=== PATIENT | male | born 1970 ===

== ENCOUNTER 2024-05-08 10:31 | Inpatient (IN) | payer MEDICAID, OTHER ==
[~2024-05-08] VITALS: Ht 175.3 cm; Wt 55.9 kg
[2024-05-08] MEDS ORDERED: DEXTROSE 10% 250 ML Bag IV ONE (10:45)
--- NOTE | 2024-05-08 11:04 | ED.PDOC ---
History of present illness HPI Comments 53y M who presents to the ED via EMS for chief complaint of altered mental status. Per EMS, pt is student at local college and pt was found passed out in toilet by another student in bathroom and EMS was called. Upon EMS arrival, pt was moved to chair and was noted to be somnolent and EMS states pt was confused and asking where he was and noted to be ax0x2. Pt had Accu check and it was noted to be in the 60's on arrival to the ED. EMS states pt told EMS he felt cold and weak." and pt was brought to the ED for further evaluation. Pt in the ED, is ax0x2 and has has no note bruising, swelling or edema noted to head or scalp region. Pt also states he has chronic right ankle wound for which he states he is chronically on antibiotics. Pt otherwise in the ED, denies chest pain, shortness of breath, headache, dizziness, nausea, vomiting, fever, cough, or chills. Pt in the ED, has noted temp of 97.1F, rr 16, 02 sat of 100% on room air, and BP of 144/89 with noted accu check of 67. Pt otherwise has unknown medical history. Pt denies any other symptoms at this time. Chief Complaint: Hypoglycemia Time Seen by MD: 11:01 History of present illness: Cost Recorder Notes Allergies: Coded Allergies: NO KNOWN ALLERGIES (Unverified , 05/08/24) Information Source: Emergency Med Personnel Mode of Arrival: EMS Brought in by: EMS Past Medical History Past Medical History (Other): Chronic right ankle wound Surgical History: Unknown Family History Family History: Unknown Social History Smoker: Unknown Alcohol: Unknown Drugs: Unknown Lives In: Home Constitutional: reports: fatigue, malaise, weakness; denies: chills, diaphoresis, fever, sweats, others EENTM: denies: blurred vision, double vision, ear bleeding, ear discharge, ear drainage, ear pain, ear ringing, eye pain, eye redness, hearing loss, mouth pain, mouth swelling, nasal discharge, nose bleeding, nose congestion, nose pain, photophobia, tearing, throat pain, throat swelling, voice changes, others Respiratory: denies: cough, hemoptysis, orthopnea, SOB at rest, shortness of breath, SOB with excertion, stridor, wheezing, others Cardiovascular: denies: chest pain, dizzy spells, diaphoresis, Dyspnea on exertion, edema, irregular heart beat, left arm pain, lightheadedness, palpitations, PND, syncope, others Gastrointestinal: denies: abdomen distended, abdominal pain, blood streaked bowels, constipated, diarrhea, dysphagia, difficulty swallowing, hematemesis, melena, nausea, poor appetite, poor fluid intake, rectal bleeding, rectal pain, vomiting, others Genitourinary: denies: burning, dysuria, flank pain, frequency, hematuria, incontinence, penile discharge, penile sore, pain, testicle pain, testicle swelling, urgency, others Neurological: denies: dizziness, fainting, headache, left sided numbness, left sided weakness, numbness, paresthesia, pre-existing deficit, right sided numbness, right sided weakness, seizure, speech problems, tingling, tremors, weakness, others Musculoskeletal: denies: back pain, gout, joint pain, joint swelling, muscle pain, muscle stiffness, neck pain, others Integumetry: reports: wounds (R leg); denies: bruises, change in color, change in hair/nails, dryness, laceration, lesions, lumps, rash, others Allergic/Immunocompromised: denies: Difficulty Healing, Frequent Infections, Hives, Itching, others Hematologic/Lymphatic: denies: anemia, blood clots, easy bleeding, easy bruising, swollen glands, others Endocrine: denies: excessive hunger, excessive sweating, excessive thirst, excessive urination, flushing, intolerance to cold, intolerance to heat, unexplained weight gain, unexplained weight loss, others Psychiatric: denies: anxiety, bipolar disorder, depression, hopeless, panic disorder, schizophrenia, sleepless, suicidal, others All Other Systems: Reviewed and Negative Physical Exam General Appearance: No Apparent Distress HEENT: PERRL/EOMI Neck: Full Range of Motion, Normal Inspection Respiratory: Chest Non-Tender, Lungs Clear, No Respiratory Distress, Normal Breath Sounds Cardiovascular: No Edema, No JVD, Regular Rate/Rhythm Breast Exam: Deferred Gastrointestinal: Non Tender, Soft Genitalia: Deferred Pelvic: Deferred Rectal: Deferred Extremities: Normal range of motion, No pedal edema, Other (Right ankle chronic appearing wound on the medial aspect) Neurologic: Alert (Oriented x2), Normal Affect, Normal Mood, Other (No gross focal deficit) Cerebellar Function: NOT DONE Reflexes: NOT DONE Skin: Dry, Normal Color, Warm, Other (Right ankle approximate 5 x 4 cm chronic appearing stage 4 wound/ulceration with malodorous clear discharge. No surrounding erythema or fluctuance.) Lymphatic: NOT DONE Was a procedure done? Was a procedure done?: No EKG EKG : Comments Sinus rhythm, rate 55, normal intervals, normal axis, normal QRS, no ST/T changes. Differential Diagnosis (DM) Differential Diagnosis: Dehydration, Electrolyte Abnormality, Encephalopathy, Hypoglycemia, UTI, Other (Alcohol/drug intoxication, CVA, TIA, arrhythmia, AL, among others) Other Differential Diagnosis cellulitis, osteomyelitis, sepsis, X-Ray, Labs, Meds, VS Vital Signs Date Time Temp Pulse Resp B/P (MAP) Pulse Ox O2 Delivery O2 Flow Rate FiO2 05/08/24 11:31 97.1 58 16 144/89 (107) 100 05/08/24 10:40 55 Lab Test 05/08/24 11:26 05/08/24 11:24 Range/Units White Blood Count 8.4 4.4-10.8 10^3/uL Red Blood Count 5.53 4.5-5.90 10^6/uL Hemoglobin 17.8 H 13.5-17.5 g/dL Hematocrit 51.7 41.0-53.0 % Mean Corpuscular Volume 93.6 80.0-100.0 fL Mean Corpuscular Hemoglobin 32.3 H 28.0-32.0 pg Mean Corpuscular Hemoglobin Concent 34.5 32.0-36.0 g/dL Red Cell Distribution Width 14.9 H 11.8-14.3 % Platelet Count 176 140-450 10^3/uL Mean Platelet Volume 8.9 6.9-10.8 fL Neutrophils (%) (Auto) 63.9 37.0-80.0 % Lymphocytes (%) (Auto) 28.6 10.0-50.0 % Monocytes (%) (Auto) 6.0 0.0-12.0 % Eosinophils (%) (Auto) 1.1 0.0-7.0 % Basophils (%) (Auto) 0.4 0.0-2.0 % Neutrophils # (Auto) 5.4 1.6-8.6 10 ^3/uL Lymphocytes # (Auto) 2.4 0.4-5.4 10 ^3/uL Monocytes # (Auto) 0.5 0-1.3 10 ^3/uL Eosinophils # (Auto) 0.1 0-0.8 10 ^3/uL Basophils # (Auto) 0 0-0.2 10 ^3/uL Nucleated Red Blood Cells 0.2 % Sodium Level 141 136-145 mmol/L Potassium Level 4.0 3.5-5.1 mmol/L Chloride Level 108 H 98-107 mmol/L Carbon Dioxide Level 22 20-31 mmol/L Anion Gap 11 5-15 Blood Urea Nitrogen 6 L 9-23 mg/dL Creatinine 0.72 0.700-1.30 mg/dL Glomerular Filtration Rate Calc 111 >90 mL/min BUN/Creatinine Ratio 8.3 L 10.0-20.0 Serum Glucose 120 H 74-106 mg/dL Lactic Acid Level 4.4 *H 0.4-2.0 mmol/L Calcium Level 10.8 H 8.7-10.4 mg/dL Total Bilirubin 0.3 0.2-1.0 mg/dL Aspartate Amino Transferase (AST) 22 13-40 U/L Alanine Aminotransferase (ALT) 21 7-40 U/L Alkaline Phosphatase 81 46-116 U/L Troponin I High Sensitivity 10 </=54 ng/L B-Type Natriuretic Peptide 12.70 0-100 pg/mL Total Protein 8.4 H 5.7-8.2 g/dL Albumin 5.5 H 3.2-4.8 g/dL Plasma/Serum Blood Alcohol 185.7 H <10 mg/dL POC Glucose 134 H 70-106 mg/dl [place] [address] Ph: [phone] DIAGNOSTIC IMAGING Diagnostic Imaging Report : [id number] Signed PATIENT: MATHEW DARNELL ACCT: [id number] UNIT: [id number] : 1970 LOC: ER ROOM / BED: / AGE / SEX: 53 / M ADM STATUS: REG ER SERVICE 1036 ORDERING PHYSICIAN: ANAND JEAN MD PROCEDURE(s): HWOCT - HEAD WITHOUT CONTRAST REASON: aloc ORDER NUMBER(s): [id number], ACCESSION NUMBER(s): [id number] EXAM: CT HEAD WITHOUT CONTRAST HISTORY: aloc COMPARISON: None TECHNIQUE: Noncontrast axial CT images of the head were performed. Sagittal and coronal reformatted images were obtained. This CT exam was performed using 1 or more of the following dose reduction techniques: Automated exposure control, adjustment of the mA and/or kv according to patient size, or the use of iterative reconstruction techniques. Radiation Dose: CTDI volume is 53.81 mGy. Dose-length product is 971.96 mGy*cm FINDINGS: No intracranial hemorrhage, mass, midline shift, hydrocephalus, or evidence of acute large vessel infarct. There is mild global brain atrophy. The partially-visualized paranasal sinuses are clear. The bilateral mastoid air cells and middle ear spaces are clear. Probable old bilateral nasal bone fractures. No cranial fracture or scalp edema. There is a soft tissue mass involving the right frontal scalp near the vertex measuring 2.8 cm AP (image 8, series 5; image 34, series 602). IMPRESSION: 1. No acute intracranial process. 2. Soft tissue mass involving the right frontal scalp measuring 2.8 cm AP. This appearance may be due to lipoma, simple cyst, sebaceous cyst, or other etiology. Recommend correlation with physical examination findings. Surgical or dermatologic consultation may be warranted on a nonemergent basis. ATED BY: SURINDER MCALLISTER MD DICTATED DATE/TIME: 05/08/24 111 SIGNED BY: SURINDER MCALLISTER MD SIGNED DATE/TIME: 05/08/24 111 CC: [place] [address] Ph: [phone] DIAGNOSTIC IMAGING Diagnostic Imaging Report : [id number] Signed PATIENT: MATHEW DARNELL ACCT: [id number] UNIT: [id number] : 1970 LOC: ER ROOM / BED: / AGE / SEX: 53 / M ADM STATUS: REG ER SERVICE 1036 ORDERING PHYSICIAN: ANAND JEAN MD PROCEDURE(s): CXRP - CHEST PORTABLE REASON: aloc ORDER NUMBER(s): [id number], ACCESSION NUMBER(s): [id number] EXAM: XY CHEST PORTABLE HISTORY: aloc COMPARISON: None TECHNIQUE: Portable upright AP view of the chest was performed. FINDINGS: No pneumothorax, consolidative infiltrates, or pulmonary edema. The heart is not enlarged. IMPRESSION: No acute intrathoracic process. ATED BY: SURINDER MCALLISTER MD DICTATED DATE/TIME: 05/08/241108 SIGNED BY: SURINDER MCALLISTER MD SIGNED DATE/TIME: 05/08/241108 CC: [place] [address] Ph: [phone] DIAGNOSTIC IMAGING Diagnostic Imaging Report : [id number] Signed PATIENT: MATHEW DARNELL ACCT: [id number] UNIT: [id number] : 1970 LOC: ER ROOM / BED: / AGE / SEX: 53 / M ADM STATUS: REG ER SERVICE 1036 ORDERING PHYSICIAN: ANAND JEAN MD PROCEDURE(s): RANKL - R ANKLE 3 VIEW REASON: chronic wound ORDER NUMBER(s): [id number], ACCESSION NUMBER(s): [id number] CLINICAL INDICATION: chronic wound TECHNIQUE: 3 views of the right ankle were performed. XY R ANKLE 3 VIEW Comparison: None FINDINGS/IMPRESSION: : 1. No acute fracture or dislocation of the right ankle. The mortise is intact. 2. Bony irregularity of the right distal tibial metaphyseal-diaphyseal junction consistent with old fracture. No cortical erosions are identified to suggest advanced osteomyelitis at this time. If there is an open wound in this area and osteomyelitis is clinically suspected, recommend follow-up pre and post- contrast MRI or triple phase bone scan for further evaluation. ATED BY: SURINDER MCALLISTER MD DICTATED DATE/TIME: 05/08/241108 SIGNED BY: SURINDER MCALLISTER MD SIGNED DATE/TIME: 05/08/241108 CC: X-Ray, Labs, Meds, VS Comment 53-year-old male with a history of chronic right lower extremity wound brought in by EMS after being found unconscious at his college Vitals remarkable for heart rate 55 Exam remarkable for orientation x2, chronic appearing right medial ankle wound with malodorous clear discharge Rhythm strip independently interpreted by me: Sinus rhythm, 55, no ectopy. CT head IMPRESSION: 1. No acute intracranial process. 2. Soft tissue mass involving the right frontal scalp measuring 2.8 cm AP. This appearance may be due to lipoma, simple cyst, sebaceous cyst, or other etio logy. Recommend correlation with physical examination findings. Surgical or dermatologic consultation may be warranted on a nonemergent basis. Chest x-ray IMPRESSION: No acute intrathoracic process. Right ankle x-rays FINDINGS/IMPRESSION: : 1. No acute fracture or dislocation of the right ankle. The mortise is intact. 2. Bony irregularity of the right distal tibial metaphyseal-diaphyseal junction consistent with old fracture. No cortical erosions are identified to suggest advanced osteomyelitis at this time. If there is an open wound in this area and osteomyelitis is clinically suspected, recommend follow-up pre and post-c ontrast MRI or triple phase bone scan for further evaluation. CBC unremarkable, metabolic panel unremarkable for any abnormality of acute significance, troponin and BNP normal, lactic 4.4, alcohol 185.7, UA and urine drug screen pending Patient treated with the following in the ED: P.o. juice with improvement of blood glucose to 135, 2 L 0.9 normal saline IV bolus, Zosyn 4.5 g IV, vancomycin 1 g IV On re-evaluation, patient is resting comfortably with stable vitals. He is now oriented x3, but still can not recall the events leading up to him arriving in the hospital. Plan is to admit the patient for lactate trend, IV antibiotics for possible wound infection/sepsis. Time of 1ST Reevaluation: 11:35 Reevaluation 1ST: Unchanged Patient Education/Counseling: Diagnosis, Treatment Family Education/Counseling: No Family Present Additional Information -Reviewed patient's previous visit(s): - The following tests were ordered, and results were reviewed by me: cbc, cmp, trop x2, bnp, chest x-ray, ua, ekg x1, ct head w/0 contrast, drug screen, blood alcohol, lactic acid, blood culture. wound culture, R ankle x-ray, - Additional information was gathered from interviewing the following independent Historian: EMS - I reviewed and agreed with the following test results read by other provider:radiologist - I discussed treatments and results with medical personnel and: patient Comprehensive systems review obtained and negative except for what is stated in the HPI. Departure 1 Departure Time of Disposition: 12:30 Impression: Primary Impression: Metabolic encephalopathy Additional Impressions: Alcohol intoxication Qualified Codes: F10.929 - Alcohol use, unspecified with intoxication, unspecified Wound infection Elevated lactic acid level Disposition: ADMITTED INPATIENT Admit to: Tele Condition: Guarded Critical Care Note Critical Care Time?: No Stability Stability form required: No Heart Score Heart Score: Heart Score Response (Comments) Value History N/A 0 EKG N/A 0 Age N/A 0 Risk Factors N/A 0 Troponin N/A 0 Total 0 I personally scribed for ANAND JEAN MD (DENNIS) on 05/08/24 at 11:04. Electronically submitted by Robert Scherer ([facility]). I personally scribed for ANAND JEAN MD (DENNIS) on 05/08/24 at 11:30. Electronically submitted by Robert Scherer ([facility]). ANAND JEAN MD May 08, 2024 11:04
--- NOTE | 2024-05-08 11:11 | DVH ---
CLINICAL INDICATION: chronic wound TECHNIQUE: 3 views of the right ankle were performed. XY R ANKLE 3 VIEW Comparison: None FINDINGS/IMPRESSION: : 1. No acute fracture or dislocation of the right ankle. The mortise is intact. 2. Bony irregularity of the right distal tibial metaphyseal-diaphyseal junction consistent with old f racture. No cortical erosions are identified to suggest advanced osteomyelitis at this time. If ther e is an open wound in this area and osteomyelitis is clinically suspected, recommend follow-up pre a nd post-contrast MRI or triple phase bone scan for further evaluation.
--- NOTE | 2024-05-08 11:12 | DVH ---
EXAM: XY CHEST PORTABLE HISTORY: aloc COMPARISON: None TECHNIQUE: Portable upright AP view of the chest was performed. FINDINGS: No pneumothorax, consolidative infiltrates, or pulmonary edema. The heart is not enlarged. IMPRESSION: No acute intrathoracic process.
--- NOTE | 2024-05-08 11:15 | DVH ---
EXAM: CT HEAD WITHOUT CONTRAST HISTORY: aloc COMPARISON: None TECHNIQUE: Noncontrast axial CT images of the head were performed. Sagittal and coronal reformatted i mages were obtained. This CT exam was performed using 1 or more of the following dose reduction techn iques: Automated exposure control, adjustment of the mA and/or kv according to patient size, or the u se of iterative reconstruction techniques. Radiation Dose: CTDI volume is 53.81 mGy. Dose-length product is 971.96 mGy*cm FINDINGS: No intracranial hemorrhage, mass, midline shift, hydrocephalus, or evidence of acute large vessel inf arct. There is mild global brain atrophy. The partially-visualized paranasal sinuses are clear. The b ilateral mastoid air cells and middle ear spaces are clear. Probable old bilateral nasal bone fractur es. No cranial fracture or scalp edema. There is a soft tissue mass involving the right frontal scalp near the vertex measuring 2.8 cm AP (image 8, series 5; image 34, series 602). IMPRESSION: 1. No acute intracranial process. 2. Soft tissue mass involving the right frontal scalp measuring 2.8 cm AP. This appearance may be d ue to lipoma, simple cyst, sebaceous cyst, or other etiology. Recommend correlation with physical exa mination findings. Surgical or dermatologic consultation may be warranted on a nonemergent basis.
[2024-05-08 11:39] LABS: Eosinophils # (auto) 0.1 10 ^3/uL (0-0.8); Monocytes # (auto) 0.5 10 ^3/uL (0-1.3); Neutrophils # (auto) 5.4 10 ^3/uL (1.6-8.6)
[2024-05-08 11:41] LABS: Basophils # (auto) 0 10 ^3/uL (0-0.2); Basophils % (auto) 0.4 % (0.0-2.0); Eosinophils % (auto) 1.1 % (0.0-7.0); Hematocrit 51.7 % (41.0-53.0); Hemoglobin 17.8 g/dL (13.5-17.5); Lymphocytes # (auto) 2.4 10 ^3/uL (0.4-5.4); Lymphocytes % (auto) 28.6 % (10.0-50.0); Mean Corpuscular Hemoglobin 32.3 pg (28.0-32.0); Mean Corpuscular Hgb Conc. 34.5 g/dL (32.0-36.0); Mean Corpuscular Volume 93.6 fL (80.0-100.0); Neutrophils % (auto) 63.9 % (37.0-80.0); Nucleated Red Blood Cells % 0.2 %; Platelet Count (auto) 176 10^3/uL (140-450); Red Blood Cells 5.53 10^6/uL (4.5-5.90); Red Cell Distribution Width 14.9 % (11.8-14.3); White Blood Cell 8.4 10^3/uL (4.4-10.8)
[2024-05-08 12:00] LABS: Alanine Aminotransferase 21 U/L (7-40); Alkaline Phosphatase 81 U/L (46-116); Anion Gap 11 (5-15); Aspartate Aminotransferase 22 U/L (13-40); BUN/Creatinine Ratio 8.3 (10.0-20.0); Bilirubin, Total 0.3 mg/dL (0.2-1.0); Blood Alcohol 185.7 mg/dL (<10); Carbon Dioxide 22 mmol/L (20-31); Sodium 141 mmol/L (136-145)
[2024-05-08 12:03] LABS: Albumin 5.5 g/dL (3.2-4.8); Blood Urea Nitrogen 6 mg/dL (9-23); Calcium 10.8 mg/dL (8.7-10.4); Chloride 108 mmol/L (98-107); Glucose 120 mg/dL (74-106); Total Protein 8.4 g/dL (5.7-8.2)
[2024-05-08 12:12] LABS: Lactic Acid w/Reflex 4.4 mmol/L (0.4-2.0)
[2024-05-08] MEDS ORDERED: VANCOMYCIN 1GM/250ML KIT 250 ML IV ONE (12:30)
[2024-05-08] MEDS: SODIUM CHLORIDE 0.9% 2,000 ML IV ONE (13:10)
[2024-05-08] MEDS: PIPERACILLIN-TAZO 4.5GM 100 ML IV ONE (13:15)
--- NOTE | 2024-05-08 13:28 | ECG ---
[facility] Test Date: 2024-05-08 Test Time: 10:40:46 Pat Name: MATHEW DARNELL Department: ER Room: [facility] Gender: M [employer] C[employer]: RITA : 1970 Requested By: ANAND DENIS Order Number: [id number] Reading MD: Power Fontanez Measurements Intervals [place] Rate: 55 P: 39 VA: 181 QRS: 116 QRSD: 96 T: 46 QT: 441 QTc: 422 Interpretive Statements Sinus rhythm ST elevation suggests acute pericarditis Electronically Signed On 05-10-2024 19:10:24 PDT by Power Fontanez Please click the below link to view image of tracing.
[2024-05-08] MEDS ORDERED: ACETAMINOPHEN 325 MG TAB PO PRN (15:15)
[2024-05-08] MEDS ORDERED: VANCOMYCIN PER PHARMACY 0 MG IV SCH (15:15)
[2024-05-08] MEDS ORDERED: HYDROcodone-ACET 5/325MG TAB PO PRN (15:15)
[2024-05-08] MEDS ORDERED: ONDANSETRON HCL 4 MG/2 ML VIAL IV PRN (15:15)
[2024-05-08] MEDS ORDERED: VANCOMYCIN 1.25GM/250ML 250 ML IV ONE (15:45)
--- NOTE | 2024-05-08 16:07 | DVHHP2 ---
History of Present Illness Reason for Visit: Altered mental status History of Present Illness Aj Hendrix is a 53-year-old male with past medical history of chronic right ankle wound due to a fall 10 years ago with plates placed in at [facility] who presents to the ED with altered mental status. Patient reports santosh t he was at school at [employer] walk to the restroom and suddenly passed out. Patient does not recall however when he passed out or if he struck his body part or head. Patient also reports that he has a cyst on the right frontal scalp and it has been there for the last 1-2 years. Upon examination and palpation patient denies any pain of the bump on his head. Patient reports that he is taking antibiotics for the open right ankle wound but does not recall what he is taking. Patient denies any chest pain, shortness of breath, fever, chills, recent ingestion of spoiled food, recent sick contacts or recent illnesses, abdominal pain, nausea, vomiting, and diarrhea. Upon examination of his right medial ankle there is light yellowish pus draining. Past Medical History Chronic Right ankle wound Past Surgical History: Other (Right ankle plates placed in at [facility]) Family History: None Smoke: 2 packs per day ALCOHOL: none Drugs: None Lives: with Family Domestic Violence: Neg Review of Systems Constitutional: Yes: Other (Syncope) Allergies: Coded Allergies: NO KNOWN ALLERGIES (Unverified , 05/08/24) Exam Vital Signs Vital Signs Date Time Temp Pulse Resp B/P (MAP) Pulse Ox O2 Delivery O2 Flow Rate FiO2 05/08/24 14:07 98.0 75 19 139/81 (100) 98 98.0 General Appearance: Alert, Oriented X3, Cooperative, No acute distress HEENT: Atraumatic, PERRLA, EOMI, Mucous membr. moist/pink Respiratory: Normal air movement Cardiovascular: Normal S1, Normal S2, No murmurs Abdominal: Normal bowel sounds, Soft, No tenderness, No hepatospenomegaly, No masses Extremities: No cyanosis Neuro: Normal gait, Normal speech, Strength at 5/5 X4 ext, Sensation intact Psych/Mental Status: Mental status NL, Mood NL Labs/Xrays Labs Test 05/08/24 13:31 05/08/24 11:26 05/08/24 11:24 Range/Units Lactic Acid Level 2.8 *H 0.4-2.0 mmol/L Troponin I High Sensitivity 10 </=54 ng/L White Blood Count 8.4 4.4-10.8 10^3/uL Red Blood Count 5.53 4.5-5.90 10^6/uL Hemoglobin 17.8 H 13.5-17.5 g/dL Hematocrit 51.7 41.0-53.0 % Mean Corpuscular Volume 93.6 80.0-100.0 fL Mean Corpuscular Hemoglobin 32.3 H 28.0-32.0 pg Mean Corpuscular Hemoglobin Concent 34.5 32.0-36.0 g/dL Red Cell Distribution Width 14.9 H 11.8-14.3 % Platelet Count 176 140-450 10^3/uL Mean Platelet Volume 8.9 6.9-10.8 fL Neutrophils (%) (Auto) 63.9 37.0-80.0 % Lymphocytes (%) (Auto) 28.6 10.0-50.0 % Monocytes (%) (Auto) 6.0 0.0-12.0 % Eosinophils (%) (Auto) 1.1 0.0-7.0 % Basophils (%) (Auto) 0.4 0.0-2.0 % Neutrophils # (Auto) 5.4 1.6-8.6 10 ^3/uL Lymphocytes # (Auto) 2.4 0.4-5.4 10 ^3/uL Monocytes # (Auto) 0.5 0-1.3 10 ^3/uL Eosinophils # (Auto) 0.1 0-0.8 10 ^3/uL Basophils # (Auto) 0 0-0.2 10 ^3/uL Nucleated Red Blood Cells 0.2 % Sodium Level 141 136-145 mmol/L Potassium Level 4.0 3.5-5.1 mmol/L Chloride Level 108 H 98-107 mmol/L Carbon Dioxide Level 22 20-31 mmol/L Anion Gap 11 5-15 Blood Urea Nitrogen 6 L 9-23 mg/dL Creatinine 0.72 0.700-1.30 mg/dL Glomerular Filtration Rate Calc 111 >90 mL/min BUN/Creatinine Ratio 8.3 L 10.0-20.0 Serum Glucose 120 H 74-106 mg/dL Calcium Level 10.8 H 8.7-10.4 mg/dL Total Bilirubin 0.3 0.2-1.0 mg/dL Aspartate Amino Transferase (AST) 22 13-40 U/L Alanine Aminotransferase (ALT) 21 7-40 U/L Alkaline Phosphatase 81 46-116 U/L B-Type Natriuretic Peptide 12.70 0-100 pg/mL Total Protein 8.4 H 5.7-8.2 g/dL Albumin 5.5 H 3.2-4.8 g/dL Plasma/Serum Blood Alcohol 185.7 H <10 mg/dL POC Glucose 134 H 70-106 mg/dl EXAM: CT CT R ANKLE WO CONTRAST INDICATION: r/o osteo EXAM DATE: 05/08/2024 03:29 PM COMPARISON: None TECHNIQUE: Multiple axial CT images of the right ankle were obtained using bone algorithm. Axial and coronal reformatting was done. Bone and soft tissue windows were reviewed. Radiation Dose Information: CT Dose: CTDI volume is 24.87 mGy. Dose-length product is 678.96 mGy*cm Findings/Impression: Limited evaluation given noncontrast technique. There is no evidence of an acute fracture, dislocation, blastic, or lytic lesions. Soft tissue ulcer with erosion of the distal medial tibial metadiaphysis. No definite fluid collections or subcutaneous emphysema. Findings are favored to reflect a chronic injury. No radiopaque foreign bodies. If there is high clinical suspicion for osteomyelitis recommend a contrast-enha nced MRI or a nuclear medicine WBC scan for further evaluation. EXAM: CT HEAD WITHOUT CONTRAST HISTORY: aloc COMPARISON: None TECHNIQUE: Noncontrast axial CT images of the head were performed. Sagittal and coronal reformatted images were obtained. This CT exam was performed using 1 or more of the following dose reduction techniques: Automated exposure control, adjustment of the mA and/or kv according to patient size, or the use of iterative reconstruction techniques. Radiation Dose: CTDI volume is 53.81 mGy. Dose-length product is 971.96 mGy*cm FINDINGS: No intracranial hemorrhage, mass, midline shift, hydrocephalus, or evidence of acute large vessel infarct. There is mild global brain atrophy. The partially- visualized paranasal sinuses are clear. The bilateral mastoid air cells and middle ear spaces are clear. Probable old bilateral nasal bone fractures. No cranial fracture or scalp edema. There is a soft tissue mass involving the right frontal scalp near the vertex measuring 2.8 cm AP (image 8, series 5; image 34, series 602). IMPRESSION: 1. No acute intracranial process. 2. Soft tissue mass involving the right frontal scalp measuring 2.8 cm AP. This appearance may be due to lipoma, simple cyst, sebaceous cyst, or other etiology. Recommend correlation with physical examination findings. Surgical or dermatologic consultation may be warranted on a nonemergent basis. EXAM: XY CHEST PORTABLE HISTORY: aloc COMPARISON: None TECHNIQUE: Portable upright AP view of the chest was performed. FINDINGS: No pneumothorax, consolidative infiltrates, or pulmonary edema. The heart is not enlarged. IMPRESSION: No acute intrathoracic process. CLINICAL INDICATION: chronic wound TECHNIQUE: 3 views of the right ankle were performed. XY R ANKLE 3 VIEW Comparison: None FINDINGS/IMPRESSION: : 1. No acute fracture or dislocation of the right ankle. The mortise is intact. 2. Bony irregularity of the right distal tibial metaphyseal-diaphyseal junction consistent with old fracture. No cortical erosions are identified to suggest advanced osteomyelitis at this time. If there is an open wound in this area and osteomyelitis is clinically suspected, recommend follow-up pre and post- contrast MRI or triple phase bone scan for further evaluation. Assessment/Plan Assessment/Plan Assessment Acute encephalopathy Lactic acidosis ETOH intoxication ?Osteomyelitis right ankle History of right chronic leg wound Tobacco use Plan Admit to [facility] surge labs esr CT right lower extremity IV antibiotics-vancomycin + Zosyn CT head NS 2 L given ED Wound culture Blood cultures Lactic Troponin negative x2 Blood alcohol positive UDS EKG UA Chest x-ray noted BNP Wound consult Echo ordered DVT prophylaxis Lovenox Diet Discussed plan of care with patient and nurse Home medications reconciled Antiemetics Pain management MRI right ankle with contrast ordered Plan discussed with: Patient Date of Service: May 08, 2024 Billing Provider: SOLEDAD WALLACE Common Visit Codes: [id number] INP/OBS CARE (HIGH) SOLEDAD WALLACE May 08, 2024 16:07
--- NOTE | 2024-05-08 16:24 | DVH ---
EXAM: CT CT R ANKLE WO CONTRAST INDICATION: r/o osteo EXAM DATE: 05/08/2024 03:29 PM COMPARISON: None TECHNIQUE: Multiple axial CT images of the right ankle were obtained using bone algorithm. Axial and coronal reformatting was done. Bone and soft tissue windows were reviewed. Radiation Dose Information: CT Dose: CTDI volume is 24.87 mGy. Dose-length product is 678.96 mGy*cm Findings/Impression: Limited evaluation given noncontrast technique. There is no evidence of an acute fracture, dislocation, blastic, or lytic lesions. Soft tissue ulcer with erosion of the distal medial tibial metadiaphysis. No definite fluid collecti ons or subcutaneous emphysema. Findings are favored to reflect a chronic injury. No radiopaque foreign bodies. If there is high clinical suspicion for osteomyelitis recommend a contrast-enhanced MRI or a nuclear medicine WBC scan for further evaluation.
[2024-05-08 16:28] LABS: Erythrocyte Sedimentation Rate 5 mm/hr (0-20)
[2024-05-08 16:45] VITALS: BP 149/77; PULSE 64; RESP 16; TEMP 97.9; O2SAT 100
[2024-05-08] MEDS: VANCOMYCIN 1.75GM/350ML 350 ML IV ONE (17:53)
[2024-05-08 20:00] VITALS: PULSE 64; RESP 17; O2SAT 99
[2024-05-08 21:00] VITALS: BP 145/73; PULSE 64; RESP 17; TEMP 97.7; O2SAT 99
[2024-05-08] MEDS: PIPERACILLIN-TAZOB 3.375GM 100 ML IV SCH (22:36)
[2024-05-09] VITALS (7 sets, daily range): BP systolic 118–153; BP diastolic 76–96; PULSE 51–67; RESP 14–18; TEMP 97.2–98; O2SAT 94–99
[2024-05-09] MEDS: VANCOMYCIN 1GM/250ML KIT 250 ML IV SCH (01:00)
[2024-05-09 05:21] LABS: Basophils # (auto) 0.1 10 ^3/uL (0-0.2); Basophils % (auto) 0.6 % (0.0-2.0); Eosinophils # (auto) 0.1 10 ^3/uL (0-0.8); Eosinophils % (auto) 1.5 % (0.0-7.0); Hematocrit 44.1 % (41.0-53.0); Hemoglobin 15.2 g/dL (13.5-17.5); Lymphocytes % (auto) 33.8 % (10.0-50.0); Mean Corpuscular Hemoglobin 32.2 pg (28.0-32.0); Mean Corpuscular Hgb Conc. 34.5 g/dL (32.0-36.0); Mean Corpuscular Volume 93.2 fL (80.0-100.0); Monocytes # (auto) 0.9 10 ^3/uL (0-1.3); Monocytes % (auto) 9.8 % (0.0-12.0); Neutrophils # (auto) 4.8 10 ^3/uL (1.6-8.6); Neutrophils % (auto) 54.3 % (37.0-80.0); Nucleated Red Blood Cells % 0.1 %; Platelet Count (auto) 157 10^3/uL (140-450); Red Blood Cells 4.73 10^6/uL (4.5-5.90); Red Cell Distribution Width 14.5 % (11.8-14.3); White Blood Cell 8.9 10^3/uL (4.4-10.8)
[2024-05-09 05:40] LABS: Alanine Aminotransferase 15 U/L (7-40); Albumin 4.1 g/dL (3.2-4.8); Alkaline Phosphatase 60 U/L (46-116); Anion Gap 10 (5-15); Aspartate Aminotransferase 22 U/L (13-40); BUN/Creatinine Ratio 12.5 (10.0-20.0); Blood Urea Nitrogen 10 mg/dL (9-23); Calcium 10.3 mg/dL (8.7-10.4); Carbon Dioxide 21 mmol/L (20-31); Potassium 3.7 mmol/L (3.5-5.1); Sodium 139 mmol/L (136-145); Total Protein 6.1 g/dL (5.7-8.2)
[2024-05-09 05:41] LABS: Bilirubin, Total 0.8 mg/dL (0.2-1.0)
[2024-05-09 05:51] LABS: Chloride 108 mmol/L (98-107); Glucose 71 mg/dL (74-106)
[2024-05-09] MEDS ORDERED: SODIUM CHLORIDE 0.9% 1,000 ML IV SCH (07:00)
[2024-05-09] MEDS ORDERED: LORazepam 2MG/ML-1ML VIAL IV PRN (08:00)
--- NOTE | 2024-05-09 09:09 | DVH ---
CT HEAD WITHOUT CONTRAST INDICATION: Syncopal episode EXAM DATE: 05/09/2024 08:12 AM COMPARISON: CT HEAD WITHOUT CONTRAST on DOS: 05/08/24 RADIATION DOSE: CTDIvol: 50.14 mGy, DLP: 803.9 mGy*cm PROCEDURE: CT scans of the head were obtained from the vertex to the skull base. Sagittal and coronal reconstructions were provided. All CT scans at this medical facility are performed using dose modulation techniques as appropriate t o a performed exam including the following: Automated exposure control was utilized; adjustment of th e MA and/or KV according to patient size; and use of iterative reconstruction technique. FINDINGS: There is sulcal and ventricular prominence. The brainshows normal morphology and garza-whi te matter differentiation, without intracranial hemorrhage, extra-axial fluid collection, mass effect or acute large vessel infarct. The ventricles are normal in size. The basal cisterns are patent. The skull and visible facial bones are intact. The paranasal sinuses, mastoid air cells and middle ear c avities are well-aerated. 1.6 cm cystic lesion in the left frontal scalp. IMPRESSION: No acute intracranial abnormality.
[2024-05-09] MEDS: ENOXAPARIN SOD 40 MG/0.4 ML SYRINGE SC SCH (10:00)
[2024-05-09] MEDS ORDERED: ENOXAPARIN SOD 30 MG/0.3 ML SYRINGE SC SCH (10:00)
[2024-05-09] MEDS: chlordiazePOXIDE HCL 25 MG CAP PO SCH (10:19)
[2024-05-09] MEDS: THIAMINE 100mg/ml INJ (200mg/2ml VIAL) IV ONE (10:20)
[2024-05-09] MEDS: GADOTERATE MEG 10 MMOL/20ml INJ (0.5MMOL/ml) IV ONE (11:39)
--- NOTE | 2024-05-09 14:00 | DVH ---
Procedure: MRI MRI R ANKLE WITH WO CONTRA 05/09/2024 12:21 PM Indication: r/o osteomyelitis COMPARISON: CT scan dated 05/08/2024 TECHNIQUE: Multisequence multiplanar imaging was performed. FINDINGS: Extensor tendons: Unremarkable. Flexor tendons: Unremarkable. Peroneal tendons: Unremarkable. Syndesmotic ligaments: Unremarkable. Medial stabilizer ligaments: Unremarkable. Lateral stabilizer complex: Chronic ATFL tear. Sinus Tarsi: Unremarkable. Tarsal tunnel: Unremarkable. Achilles tendon: Unremarkable. Plantar fascia: Unremarkable. Bones/Joints: The ankle mortise and syndesmotic space are maintained subtalar joints are maintained. Large osseous defect in the medial aspect of the distal tibial metaphysis which is partially imaged i n this study. There is overlying skin contour deformity. Mild adjacent bone marrow edema is seen. Ailyn ceptibility artifact from several metallic densities within the bone significantly limits evaluation. Other: Unremarkable. IMPRESSION: 1. Large osseous defect in the medial aspect of distal tibial metaphysis is partially imaged. The edg es appear corticated. Susceptibility artifact from intraosseous micro metal from removed hardware si gnificantly limits evaluation. Recommend further evaluation for osteomyelitis with 3-phase bone scan combined with indium 111 WBC scan. 2. Chronic ATFL tear.
--- NOTE | 2024-05-09 16:57 | DVHPNRES ---
Progress Note Date Seen: May 09, 2024 Resident Creating Document: PRAVEEN KOLB RESIDENT Medical Necessity Reason Pt with a Central, PICC or Fol: No Subjective Review of Systems This is a 53-year-old male with past medical history of chronic unhealing right ankle wound, s/p rt ankle plate presented to the ED with altered mental status. Patient reports that he was at school at [employer] walk to the restroom and suddenly passed out. Patient does not recall however when he passed out or if he struck his body part or head. also mentioned is taking antibiotic intermittent day for the open right angle wound but he does not recall what he was taking before. chronic smoker since childhood smokes 2 packs per day and drinks 1-2 beer every day for last 10 years. unit patient's blood alcohol level was 187.5. patient denied any blurred vision, chest pain, palpitation, shortness of breath, dizziness, nausea, vomiting or any change in bowel and bladder habit. Patient was seen and examined the bedside. He is alert oriented x3. complaint of pain and discharge from right lower leg wound. No other active complaint Constitutional: No: Fever, Chills, Sweats, Weakness, Malaise, Other Eyes: No: Pain, Vision change, Conjunctivae inflammation, Eyelid inflammation, Other, Redness ENT: No: Ear pain, Ear discharge, Nose pain, Nose discharge, Nose congestion, Mouth pain, Mouth swelling, Throat pain, Throat swelling, Other Respiratory: Shortness of breath, improving No: Cough, Dry,Wheezing, Hemoptysis, Pleuritic Pain, Sputum, Wheezing, Other Cardiovascular: No: Chest Pain, Palpitations, Orthopnea, Paroxysmal Noc. Dyspnea, Edema, Lt Headedness, Other Gastrointestinal: No: Nausea, Vomiting, Abdominal Pain, Diarrhea, Constipation, Melena, Hematochezia, Other Musculoskeletal: No: other, neck pain, shoulder pain, arm pain, back pain, hand pain, leg pain, foot pain Neurological:; No: Weakness, Numbness, Incoordination, Change in speech, Confusion, Seizures Objective vital signs Vital Sign Date Time Temp Pulse Resp B/P (MAP) Pulse Ox O2 Delivery O2 Flow Rate FiO2 05/09/24 16:49 98.0 60 18 145/90 (108) 99 98.0 05/09/24 08:00 Room Air* 0 21 Total Intake and Output 05/08/24 05/08/24 05/09/24 15:00 23:00 07:00 Intake Total 0 ml 2630 ml Balance 0 ml 2630 ml medications Current Medications Medications Dose Ordered Sig/Zoila Route Start Time Stop Time Status Last Admin Dose Admin Vancomycin HCl 0 ml @ 0 mls/hr UD IV 05/08/24 15:15 Acetaminophen/ Hydrocodone Bitart 1 tab Q4HP PRN PO 05/08/24 15:15 Ondansetron HCl 4 mg Q4HP PRN IV 05/08/24 15:15 Enoxaparin Sodium 30 mg DAILY SC 05/09/24 10:00 Cancel Acetaminophen 650 mg Q6HP PRN PO 05/08/24 15:15 Enoxaparin Sodium 40 mg DAILY SC 05/09/24 10:00 Vancomycin HCl 250 ml @ 250 mls/hr Q8H IV 05/09/24 01:00 05/09/24 10:20 250 MLS/HR Folic Acid 1 mg/ Multivitamins 10 ml/Magnesium Sulfate 8 meq/ Thiamine HCl 100 mg/Dextrose 1,013.2 ml @ 125.001 mls/hr DAILY@1800 INJ 05/09/24 18:00 Lorazepam 2 mg Q3HPRN PRN IV 05/09/24 08:00 Cefepime HCl 50 ml @ 12.5 mls/hr Q12HR IV 05/09/24 22:00 Examination Physical examination: General Appearance: Alert, Oriented X3, Cooperative, No acute distress HEENT: Atraumatic, PERRLA, EOMI, Mucous membrane moist/pink Respiratory: Clear to auscultation, Normal air movement Cardiovascular: Regular rate, Normal S1, Normal S2, No murmurs, no chest wall tenderness Abdominal: Normal bowel sounds, Soft, No tenderness, No hepatospenomegaly, No masses Extremities: Chronic non healing wound with foul-smelling discharge in right lower leg, No clubbing, No cyanosis, No edema, Normal pulses, No tenderness/swelling Skin: Cystic lesion in the scalp, No rashes, No breakdown, No significant lesion Neuro: Normal gait, Normal speech, Strength at 5/5 X4 ext, Normal tone, Sensation intact, Cranial nerves 3-12 NL, Reflexes 2+ Psych/Mental Status: Mental status NL, Mood NL laboratory and microbiology Laboratory Tests 05/09/24 04:23 Test 05/09/24 04:23 Range/Units Serum Glucose 71 L 74-106 mg/dL Microbiology Date/Time Source Procedure Growth Status 05/08/24 11:26 Blood Blood Culture - Preliminary NO GROWTH AFTER 24 HOURS OF INCUBATION. Resulted Labs and/or images reviewed: Labs reviewed by me, Image(s) reviewed by me Problem List/Assessment/Plan Problem List/Assessment/Plan Assessment and plan: # Acute toxic encephalopathy likely due to alcoholism # ETOH intoxication # Possible syncopal episode # Lactic acidosis likely due to hydration - EKG and troponins are unremarkable - Pending echo - Serum alcohol was 185.7 and UDS is pending - TSH and ammonia are unremarkable - CT head without contrast revealed no acute intracranial abnormality - I/V banana bag at 125 mL/hours - IV Ativan 2 mg Q 3 p.r.n. # Chronic nonhealing wound in the right lower leg # Rule out osteomyelitis - CT of rt ankle without contrast showed soft tissue ulcer with erosion of the distal medial tibial metadiaphysis. No definite fluid collection or subcutaneous emphysema - MRI of the rt ankle demonstrated Large osseous defect in the medial aspect of distal tibial metaphysis is partially imaged. The edges appear corticated. Susceptibility artifact from intraosseous micro metal from removed hardware significantly limits evaluation - Consulted Podiatry. - IV cefepime 1 g b.i.d. and IV vancomycin as per pharmacy # Nicotine dependence and alcohol use disorder - Counseled patient regarding smoking and alcohol cessation and rehabilitation PUD prophylaxis: protonix DVT prophylaxis: Not recommended as patient is mobile Code status: Full code Plan discussed with Dr. Pham Plan discussed with: Patient, Other My Orders My Orders Orders - PRAVEEN KOLB RESIDENT Procedure Category Date Status Time Folic Acid... PHA 05/09/24 In Process 18:00 Lorazepam 2mg/Ml Inj PHA 05/09/24 In Process (Ativan Inj) 08:00 Comprehensive LAB 05/09/24 In Process Hepatitis Panel 07:55 Mrsa Screen JB 05/09/24 Uncollected 07:[address] 05/09/24 Resulted 08:00 Orthostatic Vital ORDERS 05/09/24 Transmitted Signs 08:02 Cefepime 1gm/ 50ml PHA 05/09/24 In Process (Maxipime 1gm/50ml) 22:00 *Podiatry Consult CONS 05/09/24 Transmitted Musson(Dvmg) 12:32 Date of Service: May 09, 2024 Billing Provider: AMAN WILLIAM MD Common Visit Codes: [id number] INP/OBS CARE(HIGH) PRAVEEN KOLB RESIDENT May 09, 2024 16:57 AMAN WILLIAM MD May 11, 2024 23:57
[2024-05-09] MEDS: FOLIC ACID 1 MG, MULTIPLE VITAMIN 10 ML, MAGNESIUM SULF SDV 50% 8 MEQ, THIAMINE INJ 100... INJ SCH (18:19)
[2024-05-09] MEDS: CEFEPIME 1GM/ 50ML 50 ML IV SCH (21:14)
[2024-05-10] VITALS (7 sets, daily range): BP systolic 114–154; BP diastolic 65–87; PULSE 57–98; RESP 16–18; TEMP 97.9–98.6; O2SAT 90–100
[2024-05-10] MEDS ORDERED: chlordiazePOXIDE HCL 25 MG CAP PO SCH (10:00)
[2024-05-10 13:49] LABS: Urine Bacteria FEW /hpf (None Seen); Urine Blood Negative /uL (Negative); Urine Clarity Clear (Clear); Urine Color Light-Yellow (Yellow); Urine Protein, UAD Negative (Negative); Urine Specific Gravity 1.005 (1.001-1.035); Urine Squamous Epithelial Cell None Seen /hpf (<5); Urine Urobilinogen Normal (Negative); Urine WBC < 1 /HPF (0-3)
[2024-05-10 13:57] LABS: Benzodiazephine Screen, Urine Pos (NEGATIVE)
[2024-05-10 13:58] LABS: Cannabinoid Screen, Urine Neg (NEGATIVE)
[2024-05-10 14:01] LABS: Amphetamine Screen, Urine Neg (NEGATIVE); Barbiturate Scree,Urine Neg (NEGATIVE); Cocaine Screen, Urine Neg (NEGATIVE); Opiate Scree,Urine Neg (NEGATIVE); Phencyclidine Screen, Urine Neg (NEGATIVE)
[2024-05-10] MEDS: THIAMINE HCL 100 MG TAB PO SCH (15:22)
[2024-05-10] MEDS: MULTIPLE VITAMIN TAB PO SCH (15:22)
[2024-05-10] MEDS: MAGNESIUM OXIDE 400 MG TAB PO SCH (15:22)
[2024-05-10] MEDS: FOLIC ACID 1 MG TAB PO SCH (15:22)
--- NOTE | 2024-05-10 16:48 | DVHDSRES ---
Discharge Summary Date of Admission Resident Creating Document: PRAVEEN KOLB RESIDENT May 08, 2024 at 15:06 Date of Discharge: May 10, 2024 Admitting Diagnosis Acute toxic or metabolic encephalopathy Labs/Diagnostic Data: Laboratory Results Test 05/10/24 11:40 05/10/24 05:18 05/09/24 16:27 05/09/24 09:03 Urine Color Light-yellow (Yellow) Urine Clarity Clear (Clear) Urine pH 7.0 (5.0-9.0) Urine Specific [place] 1.005 (1.001-1.035) Urine Protein Negative (Negative) Urine Ketones Negative (Negative) Urine Blood Negative /uL (Negative) Urine Nitrite Negative (Negative) Urine Bilirubin Negative (Negative) Urine Urobilinogen Normal mg/dL (Negative) Urine Leukocyte Esterase Negative /uL (Negative) Urine RBC <1 /hpf (0 - 3) Urine Microscopic WBC < 1 /HPF (0-3) Urine Squamous Epithelial Cells None seen /hpf (<5) Urine Bacteria Few /hpf (None Seen) Urine Glucose Normal mg/dL (Normal) Urine Opiates Screen Neg (NEGATIVE) Urine Fentanyl Screen Neg (NEGATIVE) Urine Barbiturates Screen Neg (NEGATIVE) Urine Phencyclidine Screen Neg (NEGATIVE) Urine Amphetamines Screen Neg (NEGATIVE) Urine Benzodiazepines Screen Pos (NEGATIVE) Urine Cocaine Screen Neg (NEGATIVE) Urine Cannabinoids Screen Neg (NEGATIVE) Creatinine 0.83 mg/dL (0.700-1.30) Glomerular Filtration Rate Calc 106 mL/min (>90) Vancomycin Level Trough 16.9 ug/mL (5-10) Ammonia < 10 umol/L (11-32) Test 05/09/24 07:02 05/09/24 04:23 05/08/24 16:05 05/08/24 13:31 Lactic Acid Level 0.8 mmol/L (0.4-2.0) White Blood Count 8.9 10^3/uL (4.4-10.8) Red Blood Count 4.73 10^6/uL (4.5-5.90) Hemoglobin 15.2 g/dL (13.5-17.5) Hematocrit 44.1 % (41.0-53.0) Mean Corpuscular Volume 93.2 fL (80.0-100.0) Mean Corpuscular Hemoglobin 32.2 pg (28.0-32.0) Mean Corpuscular Hemoglobin Concent 34.5 g/dL (32.0-36.0) Red Cell Distribution Width 14.5 % (11.8-14.3) Platelet Count 157 10^3/uL (140-450) Mean Platelet Volume 9.5 fL (6.9-10.8) Neutrophils (%) (Auto) 54.3 % (37.0-80.0) Lymphocytes (%) (Auto) 33.8 % (10.0-50.0) Monocytes (%) (Auto) 9.8 % (0.0-12.0) Eosinophils (%) (Auto) 1.5 % (0.0-7.0) Basophils (%) (Auto) 0.6 % (0.0-2.0) Neutrophils # (Auto) 4.8 10 ^3/uL (1.6-8.6) Lymphocytes # (Auto) 3.0 10 ^3/uL (0.4-5.4) Monocytes # (Auto) 0.9 10 ^3/uL (0-1.3) Eosinophils # (Auto) 0.1 10 ^3/uL (0-0.8) Basophils # (Auto) 0.1 10 ^3/uL (0-0.2) Nucleated Red Blood Cells 0.1 % Sodium Level 139 mmol/L (136-145) Potassium Level 3.7 mmol/L (3.5-5.1) Chloride Level 108 mmol/L (98-107) Carbon Dioxide Level 21 mmol/L (20-31) Anion Gap 10 (5-15) Blood Urea Nitrogen 10 mg/dL (9-23) BUN/Creatinine Ratio 12.5 (10.0-20.0) Serum Glucose 71 mg/dL (74-106) Hemoglobin A1c 5.1 % A1C (<5.7) Calcium Level 10.3 mg/dL (8.7-10.4) Total Bilirubin 0.8 mg/dL (0.2-1.0) Aspartate Amino Transferase (AST) 22 U/L (13-40) Alanine Aminotransferase (ALT) 15 U/L (7-40) Alkaline Phosphatase 60 U/L (46-116) Total Protein 6.1 g/dL (5.7-8.2) Albumin 4.1 g/dL (3.2-4.8) Thyroid Stimulating Hormone (TSH) 2.53 uIU/mL (0.55-4.78) POC Glucose 87 mg/dl (70-106) Troponin I High Sensitivity 10 ng/L (</=54) Test 05/08/24 11:26 Erythrocyte Sedimentation Rate 5 mm/hr (0-20) B-Type Natriuretic Peptide 12.70 pg/mL (0-100) Plasma/Serum Blood Alcohol 185.7 mg/dL (<10) Other Laboratory Tests 05/10/24 05:18 05/09/24 04:23 Brief Hx & Hospital Course: This is a 53-year-old male with past medical history of chronic unhealing right ankle wound, s/p rt ankle plate presented to the ED with altered mental status. Patient reports that he was at school at [employer] walk to the restroom and suddenly passed out. Patient does not recall however when he passed out or if he struck his body part or head. also mentioned is taking antibiotic intermittent day for the open right angle wound but he does not recall what he was taking before. chronic smoker since childhood smokes 2 packs per day and drinks 1-2 beer every day for last 10 years. unit patient's blood alcohol level was 187.5. patient denied any blurred vision, chest pain, palpitation, shortness of breath, dizziness, nausea, vomiting or any change in bowel and bladder habit. Patient required hospital admission due acute alcoholic intoxication. Patient found to higher levels of blood alcohol. UDS was positive for benzodiazepines. Head CT showed no acute changes. Patient was started banana bag along with multivitamins. Patient was counseled regarding cessation of alcohol for 17 minutes. Patient was given a advised about rehabilitation. And Ativan was given for anxiety, continuously monitored for withdrawal symptoms. Due to chronic nonhealing wound on the right lower leg with a CT which showed soft tissue ulcer with erosion of the distal medial tibial metadiaphysis. No definite fluid collection or subcutaneous emphysema and MRI of the rt ankle demonstrated Large osseous defect in the medial aspect of distal tibial metaphysis is partially imaged. The edges appear corticated. Susceptibility artifact from intraosseous micro metal from removed hardware significantly limits evaluation initially started on vancomycin and cefepime. patient condition was improved, hemodynamically stable and in condition to be discharged home. Patient was advised about 2 follow up with Podiatry on outpatient for possible intervention of right ankle wound but no urgent intervention needed now. Patient will advised healthy lifestyle modifications including diet and exercise and to abstain from alcohol and smoking. General Appearance: Alert, Oriented X3, Cooperative, No acute distress HEENT: Atraumatic, PERRLA, EOMI, Mucous membrane moist/pink Respiratory: Clear to auscultation, Normal air movement Cardiovascular: Regular rate, Normal S1, Normal S2, No murmurs, no chest wall tenderness Abdominal: Normal bowel sounds, Soft, No tenderness, No hepatospenomegaly, No masses Extremities: Chronic non healing wound with foul-smelling discharge in right lower leg, No clubbing, No cyanosis, No edema, Normal pulses, No tenderness/swelling Skin: Cystic lesion in the scalp,Chronic nonhealing wound with clear margins in the left ankle. Neuro: Normal gait, Normal speech, Strength at 5/5 X4 ext, Normal tone, Sensation intact, Cranial nerves 3-12 NL, Reflexes 2+ Psych/Mental Status: Mental status NL, Mood NL Operations or Procedures - CT head showed no acute intracranial abnormalities. - CT of rt ankle without contrast showed soft tissue ulcer with erosion of the distal medial tibial metadiaphysis. No definite fluid collection or subcutaneous emphysema - MRI of the rt ankle demonstrated Large osseous defect in the medial aspect of distal tibial metaphysis is partially imaged. The edges appear corticated. Susceptibility artifact from intraosseous micro metal from removed hardware significantly limits evaluation Condition at Discharge: Stable Final Diagnosis/Problems List # Acute toxic/metabolic encephalopathy likely due to alcoholism # ETOH intoxication # Possible syncopal episode # Lactic acidosis likely due to hydration # Chronic nonhealing wound in the right lower leg # Ruled out osteomyelitis # Nicotine dependence and alcohol use disorder Discharge Disposition: Home Discharge Instruct/Medications Diet: Consistent carbohydrate, Cardiac 2g Na,low cholest Activity: No Restrictions, As Tolerated Follow Up/Referral: PCP and Podiatry Medications: No medications needed for now Discharge Statement: "Patient was advised to return to the ER or call 911 if any headaches, dizziness, shortness of breath, chest pain, abdominal pain, bleeding, fevers, or worsening of medical condition. Patient was counseled about treatment plan, medications, possible side effects, patientverbalized understanding. All questions were answered to the best of my ability. This discharge took greater then 30 minutes in planning, reviewing documentation, counseling the patient, and discussing with other team members." ASSESSMENT ASSESSMENT Assessment Alcohol intoxication Date of Service: May 10, 2024 Billing Provider: AVA GAO MD Common Visit Codes: 52397-TLE/OBS DISCH DAY >30min KINGSLEY LANGFORD RESIDENT May 10, 2024 16:48 AVA GAO MD May 11, 2024 11:21
--- NOTE | 2024-05-10 19:08 | DVHSR ---
APPROVED REPORT EXAM: Two-dimensional and M-mode echocardiogram with Doppler and color Doppler. Blood Pressure: 139/82 mmHg INDICATION Syncope RISK FACTORS Height: 5'9, Weight: 123 DIMENSIONS LVDd4.6 (3.8-5.7cm)LA (2D)3.1 (1.9-4.0cm)Aortic Root3.3 (2.0-3.7cm) LVDs2.9 (2.5-4.0cm)LA (MM) (1.9-4.0cm)Aortic Cusp Exc1.6 (1.5-2.0cm) EF (%) 60.0 (55-70%)Rt. Atrium3.1 (1.9-4.0cm)Asc. Aorta cm IVSd0.9 (0.7-1.1cm)RV (D)3.2 (1.8-2.4cm) PWd0.8 (0.7-1.1cm) Mitral Valve MitralMitral Stenosis E wave0.84m/sMV Mean GR.mmHg A wave0.87m/sMV Peak GR.mmHg E/A ratio1.02D MVAcm2 DECEL [id number] 1/2 Timems Aortic Valve Aortic ValveAortic Stenosis V11.08m/Perico Mean GR.5mmHg V21.55m/Perico Peak GR.10mmHg LVOT Diameter2.0 (1.8-2.4cm)Doppler AVA2.19cm2 Pulmonic Valve V20.85m/s Conclusion LV EF IS 70% NORMAL VALVES NO EFFUSION NORMAL RV FUNCTION
[2024-05-11 01:00] VITALS: BP 125/80; PULSE 95; RESP 18; TEMP 97.9; O2SAT 98
[2024-05-11 05:00] VITALS: BP 124/84; PULSE 60; RESP 17; TEMP 97.6; O2SAT 98
[2024-05-11 07:08] LABS: Basophils # (auto) 0 10 ^3/uL (0-0.2); Basophils % (auto) 0.6 % (0.0-2.0); Eosinophils # (auto) 0.3 10 ^3/uL (0-0.8); Eosinophils % (auto) 4.7 % (0.0-7.0); Hematocrit 42.9 % (41.0-53.0); Hemoglobin 15.1 g/dL (13.5-17.5); Lymphocytes # (auto) 2.4 10 ^3/uL (0.4-5.4); Lymphocytes % (auto) 32.3 % (10.0-50.0); Mean Corpuscular Hgb Conc. 35.2 g/dL (32.0-36.0); Mean Corpuscular Volume 93.8 fL (80.0-100.0); Monocytes # (auto) 0.9 10 ^3/uL (0-1.3); Monocytes % (auto) 12.3 % (0.0-12.0); Neutrophils # (auto) 3.7 10 ^3/uL (1.6-8.6); Neutrophils % (auto) 50.1 % (37.0-80.0); Nucleated Red Blood Cells % 0.1 %; Platelet Count (auto) 146 10^3/uL (140-450); Red Blood Cells 4.57 10^6/uL (4.5-5.90); Red Cell Distribution Width 14.5 % (11.8-14.3); White Blood Cell 7.3 10^3/uL (4.4-10.8)
[2024-05-11 08:00] VITALS: O2SAT 97
[2024-05-11 09:00] VITALS: BP 141/90; PULSE 73; RESP 18; TEMP 97.7; O2SAT 97
[2024-05-11] MEDS ORDERED: chlordiazePOXIDE HCL 25 MG CAP PO SCH (10:00)
[2024-05-11] MEDS ORDERED: VANCOMYCIN 750 MG/150 ML IV SCH (10:30)
[2024-05-11 11:33] VITALS: BP 141/90; PULSE 73; RESP 18; TEMP 97.7; O2SAT 97
--- NOTE | 2024-05-11 11:49 | DVHPNRES ---
Progress Note Date Seen: May 11, 2024 Resident Creating Document: PRAVEEN KOLB RESIDENT Medical Necessity Reason Pt with a Central, PICC or Fol: No Subjective Review of Systems Patient was seen and examined at the bedside. He is alert oriented x3. No active complaint Objective vital signs Vital Sign Date Time Temp Pulse Resp B/P (MAP) Pulse Ox O2 Delivery O2 Flow Rate FiO2 05/11/24 11:33 97.7 73 18 97 05/11/24 09:00 141/90 (107) 05/11/24 08:00 Room Air* 0 21 Total Intake and Output 05/10/24 05/10/24 05/11/24 15:00 23:00 07:00 Intake Total 730 ml 750 ml 800 ml Balance 730 ml 750 ml 800 ml medications Current Medications Medications Dose Ordered Sig/Zoila Route Start Time Stop Time Status Last Admin Dose Admin Vancomycin HCl 0 ml @ 0 mls/hr UD IV 05/08/24 15:15 Acetaminophen/ Hydrocodone Bitart 1 tab Q4HP PRN PO 05/08/24 15:15 Ondansetron HCl 4 mg Q4HP PRN IV 05/08/24 15:15 Enoxaparin Sodium 30 mg DAILY SC 05/09/24 10:00 Cancel Acetaminophen 650 mg Q6HP PRN PO 05/08/24 15:15 Enoxaparin Sodium 40 mg DAILY SC 05/09/24 10:00 Lorazepam 2 mg Q3HPRN PRN IV 05/09/24 08:00 Cefepime HCl 50 ml @ 12.5 mls/hr Q12HR IV 05/09/24 22:00 05/10/24 21:39 12.5 MLS/HR Folic Acid 1 mg DAILY PO 05/10/24 12:45 05/10/24 15:22 1 MG Multivitamins 1 tab DAILY PO 05/10/24 12:45 05/10/24 15:22 1 TAB Thiamine HCl 100 mg DAILY PO 05/10/24 12:45 05/10/24 15:22 100 MG Magnesium Oxide 400 mg DAILY PO 05/10/24 12:45 05/10/24 15:22 400 MG Vancomycin HCl 100 ml @ 100 mls/hr Q8H IV 05/11/24 10:30 Examination Physical examination: General Appearance: Alert, Oriented X3, Cooperative, No acute distress HEENT: Atraumatic, PERRLA, EOMI, Mucous membrane moist/pink Respiratory: Clear to auscultation, Normal air movement Cardiovascular: Regular rate, Normal S1, Normal S2, No murmurs, no chest wall tenderness Abdominal: Normal bowel sounds, Soft, No tenderness, No hepatospenomegaly, No masses Extremities: Chronic non healing wound with foul-smelling discharge in right lower leg, No clubbing, No cyanosis, No edema, Normal pulses, No tenderness/swelling Skin: Cystic lesion in the scalp, No rashes, No breakdown, No significant lesion Neuro: Normal gait, Normal speech, Strength at 5/5 X4 ext, Normal tone, Sensation intact, grossly intact cranial nerves Psych/Mental Status: Mental status NL, Mood NL laboratory and microbiology Laboratory Tests 05/11/24 05:26 05/09/24 04:23 Test 05/09/24 04:23 Range/Units Serum Glucose 71 L 74-106 mg/dL Microbiology Date/Time Source Procedure Growth Status 05/09/24 15:32 Nose MRSA Screen - Final Complete 05/08/24 11:26 Blood Blood Culture - Preliminary NO GROWTH AFTER 72 HOURS OF INCUBATION. Resulted Labs and/or images reviewed: Labs reviewed by me, Image(s) reviewed by me Problem List/Assessment/Plan Problem List/Assessment/Plan Assessment and plan: # Acute toxic encephalopathy likely due to alcoholism # ETOH intoxication # Possible syncopal episode # Lactic acidosis likely due to hydration - EKG and troponins are unremarkable - ECHo revealed EF 70% - Serum alcohol was 185.7 and UDS is pending - TSH and ammonia are unremarkable - CT head without contrast revealed no acute intracranial abnormality - I/V banana bag at 125 mL/hours - IV Ativan 2 mg Q 3 p.r.n. # Chronic nonhealing wound in the right lower leg # Rule out osteomyelitis - CT of rt ankle without contrast showed soft tissue ulcer with erosion of the distal medial tibial metadiaphysis. No definite fluid collection or subcutaneous emphysema - MRI of the rt ankle demonstrated Large osseous defect in the medial aspect of distal tibial metaphysis is partially imaged. The edges appear corticated. Susceptibility artifact from intraosseous micro metal from removed hardware significantly limits evaluation - Outpatient Podiatry follow up - IV cefepime 1 g b.i.d. and IV vancomycin as per pharmacy # Nicotine dependence and alcohol use disorder - Counseled patient regarding smoking and alcohol cessation and rehabilitation PUD prophylaxis: protonix DVT prophylaxis: Not recommended as patient is mobile Code status: Full code Plan discussed with Dr. Steward Plan discussed with: Patient, Other My Orders My Orders Orders - PRAVEEN KOLB RESIDENT Procedure Category Date Status Time Folic Acid Tablet PHA 05/10/24 In Process 12:45 Multiple Vitamin PHA 05/10/24 In Process Tablet (Mvi Tab) 12:45 Thiamine Tab PHA 05/10/24 In Process 12:45 Magnesium Oxide PHA 05/10/24 In Process Tablet (Mag-Ox Tablet) 12:45 Pharmacy [facility] 05/10/24 In Process Clarification: 12:35 Dietary Evaluation Review Recommendations by RD: Protein Supplementation Comments: 1) Initiate Jhonatan @ 1 pk bid 2) Initiate Ensure Enlive qd d/t underweight BMI and wound 3) Continue micronutrient supplementation including thiamin d/t ETOH intoxication 4) Promote optimal PO intake Expected Outcomes/Goals: 1) appetite and labs to improve 2) wound to improve 3) f/u in 5 days Date of Service: May 11, 2024 Billing Provider: AVA STEWARD MD Common Visit Codes: [id number] INP/OBS CARE(HIGH) PRAVEEN KOLB RESIDENT May 11, 2024 11:49 AVA STEWARD MD May 11, 2024 16:13
[2024-05-12] MEDS ORDERED: chlordiazePOXIDE HCL 25 MG CAP PO SCH (07:00)
[2024-05-12 09:04] LABS: Hepatitis B Core Total AB Negative (Negative)
[2024-05-12 12:29] LABS: Hepatitis A Total Antibody Negative (Negative); Hepatitis B Surface Antibody Negative (Negative); Hepatitis B Surface Antigen Negative (Negative); Hepatitis C Antibody Negative (Negative)
== END 2024-05-11 11:59 | disposition home or self-care (01) | DRG 816 ==
LOC: ER 10:31 → EDBD 10:31 → OVERFLOW 15:06 → WEST WING 16:33
PROVIDERS: ADMIT Internal Medicine; ATTEND Internal Medicine
DX: T51.0X1A Toxic effect of ethanol, accidental (unintentional), initial encounter (principal); G92.8 Other toxic encephalopathy; E87.20 Acidosis, unspecified; F10.129 Alcohol abuse with intoxication, unspecified; F17.200 Nicotine dependence, unspecified, uncomplicated; Y92.89 Other specified places as the place of occurrence of the external cause; Y90.6 Blood alcohol level of 120-199 mg/100 ml
CPT/HCPCS: 36415; 70450; 71045; 73610; 73700; 73723; 80053; 80202; 80307; 80320; 81001; 82140; 82565; 82962; 83036; 83605; 83880; 84443; 84484; 85025; 85652; 86704; 86706; 86708; 86803; 87040; 87077; 87081; 87186; 87205; 87340; 93005; 93306; G0378; J2543